=== PATIENT | male | born 1945 | race Caucasian/White ===

== ENCOUNTER → 2017-04-17 | Outpatient (CLI) | payer MEDICARE, OTHER ==
[~2017-04-17] MED LIST: HYDR12.53 PO; JUNAMET PO; LISI2.5T PO; METO25TA35 PO; REGADENOSON 0.4 MG/5 ML SYRINGE ONE; RIVA10TA PO
== END | disposition home or self-care (01) ==
LOC: CFH 08:18
PROVIDERS: ATTEND Nurse Practitioner Family
DX: Z02.9 Encounter for administrative examinations, unspecified (principal)
CPT/HCPCS: J2785

== ENCOUNTER 2017-06-28 00:23 | Inpatient (IN) | payer MEDICARE, OTHER ==
[~2017-06-28] VITALS: Ht 175.3 cm; Wt 88.3 kg
[~2017-06-28 00:23] MED LIST changes: -REGADENOSON 0.4 MG/5 ML SYRINGE ONE
[2017-06-28] MEDS ORDERED: SODIUM CHLORIDE 0.9% 1,000ML IVBOLUS ONE (01:00)
[2017-06-28 01:19] LABS: HEMOGLOBIN 15.3 g/dL (13.7-18.0)
[2017-06-28 01:28] LABS: BLOOD UREA NITROGEN 14 mg/dL (7-18)
[2017-06-28 01:32] LABS: IS PT STATUS REG ER OR PRE ER? YES
[2017-06-28] MEDS ORDERED: GLIP5TAB10 PO (03:00)
[2017-06-28] MEDS ORDERED: APIX5TAB PO (03:02)
[2017-06-28] MEDS ORDERED: HEPARIN 5,000 UNITS/ML, 1ML IV ONE (03:30)
[2017-06-28] MEDS ORDERED: SODIUM CHLORIDE 0.9% 1,000 ML IV ONE (03:33)
[2017-06-28] MEDS ORDERED: PROTAMINE SULFATE 10 MG/ML, 5ML ONE (03:38)
[2017-06-28] MEDS ORDERED: HEPARIN 1,000 UNITS/ML, 10ML ONE (03:39)
[2017-06-28] MEDS ORDERED: THROMBIN 20,000 UNIT VIAL TP ONE (03:39)
[2017-06-28] MEDS ORDERED: BUPIVACAINE/PF 0.5% ONE (03:39)
[2017-06-28] MEDS: SODIUM CHLORIDE 0.9% 1,000 ML IV SCH ×2 (03:46→13:46)
[2017-06-28 03:48] LABS: ANTI-Xa-UNFRACTIONATED HEP 0.01 IU/mL (0.30-0.70)
[2017-06-28] MEDS ORDERED: hydrALAzine 20 MG/ML, 1ML IVPush PRN (04:00)
[2017-06-28] MEDS ORDERED: BISACODYL 10 MG SUPP PR PRN (04:00)
[2017-06-28] MEDS ORDERED: POLYETHYLENE GLYCOL 17 GM PACKET PO PRN (04:00)
[2017-06-28] MEDS ORDERED: OXYcodone IR 5MG TABLET PO PRN (04:00)
[2017-06-28] MEDS ORDERED: ONDANSETRON 2MG/ML, 2ML IVPush PRN ×2 (04:00)
[2017-06-28] MEDS ORDERED: morphine SULFATE 10 MG/ML, 1ML IVPush PRN (04:00)
[2017-06-28] MEDS ORDERED: MORPHINE SULFATE 4 MG/ML, 1ML IVPush PRN (04:00)
[2017-06-28] MEDS ORDERED: ENALAPRILAT 1.25 MG/ML, 2ML IVPush PRN (04:00)
[2017-06-28] MEDS ORDERED: FENTANYL PF 100 MCG/2ML ONE (04:12)
[2017-06-28] MEDS ORDERED: ROCURONIUM 10 MG/ML ONE (04:20)
[2017-06-28] MEDS ORDERED: ONDANSETRON 2MG/ML, 2ML ONE (04:20)
[2017-06-28] MEDS ORDERED: CEFAZOLIN 1,000 MG ONE (04:20)
[2017-06-28] MEDS ORDERED: LIDOCAINE 2% 100MG/5ML SYRINGE ONE (04:20)
[2017-06-28] MEDS ORDERED: PHENYLEPHRINE 10 MG/ML ONE (04:20)
[2017-06-28] MEDS ORDERED: PROPOFOL 10 MG/ML, 20ML ONE (04:20)
[2017-06-28] MEDS ORDERED: METOPROLOL 1 MG/ML, 5ML ONE (04:20)
[2017-06-28] MEDS ORDERED: SUCCINYLCHOLINE 20 MG/ML, 10ML ONE (04:20)
[2017-06-28] MEDS ORDERED: PAPAVERINE 30 MG/ML, 2ML ONE (04:25)
[2017-06-28] MEDS ORDERED: BACITRACIN 50,000 UNIT ONE (04:25)
[2017-06-28] MEDS ORDERED: OMNIPAQUE 350 MG/ML, 100ML BOTTLE ONE (04:49)
[2017-06-28] MEDS ORDERED: PROMETHAZINE 25 MG/ML, 1ML IV PRN (05:00)
[2017-06-28] MEDS ORDERED: hydrALAzine 20 MG/ML, 1ML IV PRN (05:00)
[2017-06-28] MEDS ORDERED: HYDROmorphone 1 MG/ML, 1ML IV PRN ×2 (05:00→07:30)
[2017-06-28] MEDS ORDERED: ACETAMINOPHEN 325 MG TABLET PO PRN (05:00)
[2017-06-28] MEDS ORDERED: FENTANYL PF 100 MCG/2ML IV PRN (05:00)
[2017-06-28] MEDS ORDERED: OXYcodone 5 MG/5 ML ORAL.SOL UDC PO PRN (05:00)
[2017-06-28] MEDS ORDERED: LABETALOL 5MG/ML, 20ML IV PRN (05:00)
[2017-06-28 06:31] VITALS: BP 164/83
[2017-06-28 06:34] VITALS: BP 164/83
[2017-06-28 06:54] VITALS: BP 153/87
[2017-06-28] MEDS ORDERED: INSULIN ASPART 100 UNITS/ML, PEN SQ-INSULIN SCH (07:00)
[2017-06-28] MEDS ORDERED: HYDROcodone/APAP 5/325 TABLET PO PRN (07:30)
[2017-06-28] MEDS ORDERED: OXYcodone/APAP 5/325MG TABLET PO PRN (07:30)
[2017-06-28] MEDS ORDERED: ONDANSETRON 2MG/ML, 2ML IV PRN (07:30)
[2017-06-28] MEDS ORDERED: morphine SULFATE 10 MG/ML, 1ML IV PRN (07:30)
[2017-06-28] MEDS ORDERED: NS + 20MEQ KCL 1,000 ML IV SCH (07:30)
[2017-06-28] MEDS: SODIUM CHLORIDE FLUSH 10ML SYR IVF SCH ×2 (08:00→20:08)
[2017-06-28] MEDS: HEPARIN 25,000 UNITS/500ML PMX 500 ML IV PRN (08:07)
[2017-06-28] MEDS: METOPROLOL SUCCINATE 25 MG TAB.ER.24H PO SCH (08:35)
[2017-06-28] MEDS: SENNA/DOCUSATE TABLET PO SCH (08:36)
[2017-06-28] MEDS: CEFAZOLIN PMX 1GM/50ML 50 ML IVPB SCH ×2 (12:32→20:07)
[2017-06-28] MEDS: INSULIN ASPART 100 UNITS/ML, PEN SQ-INSULIN SCH ×3 (12:34→20:07)
[2017-06-28] MEDS: NS + 20MEQ KCL 1,000 ML IV SCH ×2 (12:35→22:19)
[2017-06-28 14:25] VITALS: BP 136/90
[2017-06-28] MEDS: ACETAMINOPHEN 325 MG TABLET PO PRN (14:59)
[2017-06-28] MEDS: HEPARIN 5,000 UNITS/ML, 1ML IV PRN ×2 (15:29→22:19)
[2017-06-28 19:34] VITALS: BP 118/76
[2017-06-29 03:04] VITALS: BP 136/82
[2017-06-29] MEDS: ACETAMINOPHEN 325 MG TABLET PO PRN (04:32)
[2017-06-29] MEDS: HEPARIN 25,000 UNITS/500ML PMX 500 ML IV PRN (04:45)
[2017-06-29 04:46] VITALS: BP 124/79
[2017-06-29 05:05] LABS: HEMOGLOBIN 14.8 g/dL (13.7-18.0)
[2017-06-29 05:16] LABS: ASPARTATE AMINO TRANSFERASE 11 U/L (15-37); BLOOD UREA NITROGEN 12 mg/dL (7-18)
[2017-06-29] MEDS: METOPROLOL SUCCINATE 25 MG TAB.ER.24H PO SCH (05:34)
[2017-06-29] MEDS: HEPARIN 5,000 UNITS/ML, 1ML IV PRN (05:36)
[2017-06-29 07:40] VITALS: BP 123/75
[2017-06-29] MEDS: NS + 20MEQ KCL 1,000 ML IV SCH (08:00)
[2017-06-29] MEDS: SENNA/DOCUSATE TABLET PO SCH (08:09)
[2017-06-29] MEDS: INSULIN ASPART 100 UNITS/ML, PEN SQ-INSULIN SCH ×2 (08:09→11:29)
[2017-06-29] MEDS: SODIUM CHLORIDE FLUSH 10ML SYR IVF SCH (08:36)
[2017-06-29 13:10] VITALS: BP 131/79
[2017-06-29] MEDS ORDERED: APIX5TAB PO (15:35)
== END 2017-06-29 16:28 | disposition home or self-care (01) | DRG 253 ==
LOC: ED 00:51 → EDIP 03:33 → 5SO 06:36
PROVIDERS: ADMIT Internal Medicine; ATTEND Internal Medicine
PROC: 03C70ZZ Extirpation of Matter from Right Brachial Artery, Open Approach (ICD-10-PCS; principal; 2017-06-28 04:00)
DX: I74.2 Embolism and thrombosis of arteries of the upper extremities (principal); E44.0 Moderate protein-calorie malnutrition; E11.65 Type 2 diabetes mellitus with hyperglycemia; D68.69 Other thrombophilia; I48.0 Paroxysmal atrial fibrillation; I10 Essential (primary) hypertension; Z91.14 Patient's other noncompliance with medication regimen; Z91.018 Allergy to other foods; Z87.891 Personal history of nicotine dependence; Z79.01 Long term (current) use of anticoagulants; Z79.84 Long term (current) use of oral hypoglycemic drugs
CPT/HCPCS: 36415; 80048; 80053; 80061; 82040; 82962; 83036; 83735; 84439; 84443; 84484; 85025; 85520; 85610; 85730; 88304; 93005; 93306; 99285; J0690; J1644; J1815; J2405; J2704; J2720; J3010; J3480; J3490; Q9967; C1757; J0330; J2370; J2440; J7030

== ENCOUNTER 2017-06-30 05:19 | Emergency (ER) | payer MEDICARE, OTHER ==
[~2017-06-30] VITALS: Ht 175.3 cm; Wt 84.4 kg
[~2017-06-30 05:19] MED LIST changes: +APIX5TAB PO; +GLIP5TAB10 PO
[2017-06-30 05:22] VITALS: BP 124/76
== END 2017-06-30 06:10 | disposition home or self-care (01) ==
LOC: ED 05:59
DX: Z48.01 Encounter for change or removal of surgical wound dressing (principal); E11.9 Type 2 diabetes mellitus without complications
CPT/HCPCS: 99281

== ENCOUNTER 2017-08-01 18:40 | Emergency (ER) | payer MEDICARE, OTHER ==
[~2017-08-01] VITALS: Ht 175.3 cm; Wt 87.0 kg
[2017-08-01 19:06] LABS: HEMATOCRIT 48.4 % (39.2-51.8); HEMOGLOBIN 15.9 g/dL (13.7-18.0); WHITE BLOOD COUNT 11.5 x10^3/uL (3.4-10)
[2017-08-01 19:19] LABS: BLOOD UREA NITROGEN 18 mg/dL (7-18)
[2017-08-01 19:48] VITALS: BP 137/87
== END 2017-08-01 20:24 | disposition home or self-care (01) ==
LOC: ED 19:50
DX: R20.2 Paresthesia of skin (principal); R51 Headache; E11.9 Type 2 diabetes mellitus without complications; I10 Essential (primary) hypertension
CPT/HCPCS: 36415; 70450; 80048; 82040; 85025; 93005; 99285

== ENCOUNTER 2017-11-04 09:30 | Inpatient (IN) | payer MEDICARE, OTHER ==
[~2017-11-04] VITALS: Ht 175.3 cm; Wt 89.8 kg
[2017-11-04 10:17] VITALS: BP 134/76
[2017-11-04] MEDS ORDERED: PLEASE ENTER HEIGHT AND WEIGHT MC SCH (10:30)
[2017-11-04 11:06] LABS: ANION GAP 9 mmol/L (5-15); CALCIUM 8.7 mg/dL (8.5-10.1); CHLORIDE 107 mmol/L (98-107); CHOLESTEROL, TOTAL 160 mg/dL (140-239); CREATININE 0.91 mg/dL (0.7-1.3); TRIGLYCERIDES 231 mg/dL (50-200); VLDL CHOLESTEROL 46 mg/dL (0-25)
[2017-11-04 11:10] LABS: FREE T4 (FREE THYROXINE) 1.29 ng/dL (0.76-1.46); HDL CHOL % 20 % (26-37); HDL CHOLESTEROL (DIRECT) 32 mg/dL (40-60); LDL CHOLESTEROL,CALCULATED 82 mg/dL (54-169); LDL/HDL RATIO 2.6 (0.5-3.0); TROPONIN I < 0.015 ng/mL (0.000-0.045)
[2017-11-04 11:16] LABS: THYROID STIMULATING HORMONE 0.405 mIU/L (0.358-3.740)
[2017-11-04] MEDS: SOTALOL 80MG TABLET PO SCH ×2 (11:31→19:50)
[2017-11-04 13:23] VITALS: BP 129/71
[2017-11-04 16:16] LABS: TROPONIN I < 0.015 ng/mL (0.000-0.045)
[2017-11-04] MEDS ORDERED: APIXABAN 5 MG TABLET ONE (19:28)
[2017-11-04] MEDS ORDERED: metFORMIN XR 500 MG TAB.ER.24H ONE (19:28)
[2017-11-04] MEDS: metFORMIN XR 500 MG TAB.ER.24H PO SCH (19:30)
[2017-11-04] MEDS: APIXABAN 5 MG TABLET PO SCH (19:30)
[2017-11-04 19:47] VITALS: BP 151/81
[2017-11-04 22:36] LABS: TROPONIN I < 0.015 ng/mL (0.000-0.045)
[2017-11-05 00:29] VITALS: BP 111/65
[2017-11-05 06:01] VITALS: BP 130/70
[2017-11-05] MEDS: SOTALOL 80MG TABLET PO SCH ×2 (06:02→17:19)
[2017-11-05 08:01] VITALS: BP 123/79
[2017-11-05] MEDS: metFORMIN XR 500 MG TAB.ER.24H PO SCH ×2 (08:09→20:17)
[2017-11-05] MEDS: TAMSULOSIN 0.4 MG CAP.ER.24H PO SCH (08:10)
[2017-11-05] MEDS: APIXABAN 5 MG TABLET PO SCH ×2 (08:10→20:16)
[2017-11-05] MEDS: SITAGLIPTIN 50MG TABLET PO SCH (08:10)
[2017-11-05 15:42] VITALS: BP 130/88
[2017-11-05 19:44] VITALS: BP 119/71
[2017-11-06 00:05] VITALS: BP 120/71
[2017-11-06 05:37] VITALS: BP 111/73
[2017-11-06] MEDS: SOTALOL 80MG TABLET PO SCH (05:38)
[2017-11-06] MEDS: APIXABAN 5 MG TABLET PO SCH (07:38)
[2017-11-06 07:53] VITALS: BP 132/76
[2017-11-06] MEDS ORDERED: PROPOFOL 10 MG/ML, 20ML ONE (10:30)
[2017-11-06] MEDS: metFORMIN XR 500 MG TAB.ER.24H PO SCH (11:31)
[2017-11-06] MEDS: SITAGLIPTIN 50MG TABLET PO SCH (11:32)
[2017-11-06] MEDS: TAMSULOSIN 0.4 MG CAP.ER.24H PO SCH (11:32)
[2017-11-06 14:08] VITALS: BP 122/73
[2017-11-06] MEDS ORDERED: SOTA80TA18 PO (14:46)
== END 2017-11-06 16:10 | disposition home or self-care (01) | DRG 309 ==
LOC: 5SO 09:47
PROVIDERS: ADMIT Internal Medicine Cardiovascular Disease; ATTEND Internal Medicine Cardiovascular Disease
PROC: 5A2204Z Restoration of Cardiac Rhythm, Single (ICD-10-PCS; principal; 2017-11-04)
DX: I48.0 Paroxysmal atrial fibrillation (principal); D68.69 Other thrombophilia; E11.9 Type 2 diabetes mellitus without complications; I07.1 Rheumatic tricuspid insufficiency; I10 Essential (primary) hypertension; N40.0 Benign prostatic hyperplasia without lower urinary tract symptoms; Z87.891 Personal history of nicotine dependence; Z91.018 Allergy to other foods
CPT/HCPCS: 36415; 71046; 80048; 80061; 84439; 84443; 84484; 85014; 85018; 92960; 93005; J2704

== ENCOUNTER 2017-11-11 05:14 | Emergency (ER) | payer MEDICARE, OTHER ==
[~2017-11-11] VITALS: Ht 185.4 cm; Wt 91.1 kg
[~2017-11-11 05:14] MED LIST changes: +SOTA80TA18 PO
[2017-11-11 05:53] LABS: BASOPHILS # (AUTO) 0.07 x10^3/uL (0-0.1); BASOPHILS % (AUTO) 1 % (0-1); EOSINOPHILS # (AUTO) 0.18 x10^3/uL (0-0.4); EOSINOPHILS % (AUTO) 2 % (1-7); LYMPHOCYTES # (AUTO) 1.92 x10^3/uL (1-3.4); LYMPHOCYTES % (AUTO) 19 % (22-44); MD NO; MEAN CORPUSCULAR HEMOGLOBIN 30.3 pg (27.5-34.5); MEAN CORPUSCULAR HGB CONC 34.5 g/dL (33.2-36.2); MEAN CORPUSCULAR VOLUME 87.8 fL (81-97); MEAN PLATELET VOLUME 8.3 fL (7.4-10.4); MONOCYTES # (AUTO) 1.34 x10^3/uL (0.2-0.8); MONOCYTES % (AUTO) 14 % (2-9); NEUTROPHILS # (AUTO) 6.44 x10^3/uL (1.8-6.8); NEUTROPHILS % (AUTO) 65 % (42-75); PLATELET COUNT 242 x10^3/uL (130-400); RED BLOOD COUNT 4.94 x10^6/uL (4.38-5.82); RED CELL DISTRIBUTION WIDTH 15.3 % (9.4-14.8)
[2017-11-11] MEDS ORDERED: SODIUM CHLORIDE FLUSH 10ML SYR IVF ONE (06:00)
[2017-11-11] MEDS ORDERED: SODIUM CHLORIDE 0.9% 1,000ML IVBOLUS ONE (06:00)
[2017-11-11 06:03] LABS: ALBUMIN 3.4 g/dL (3.4-5.0); ANION GAP 8 mmol/L (5-15); CALCIUM 8.6 mg/dL (8.5-10.1); CHLORIDE 108 mmol/L (98-107)
[2017-11-11] MEDS ORDERED: DILTIAZEM 120 MG CAP.ER.24H PO ONE (06:30)
[2017-11-11 06:48] VITALS: BP 136/74
== END 2017-11-11 06:59 | disposition home or self-care (01) ==
LOC: ED 05:58
DX: I48.0 Paroxysmal atrial fibrillation (principal); E11.9 Type 2 diabetes mellitus without complications; I10 Essential (primary) hypertension
CPT/HCPCS: 36415; 71045; 80048; 82040; 83735; 85025; 93005; 96360; 99285; J7030

== ENCOUNTER → 2017-11-27 | Outpatient (CLI) | payer MEDICARE, OTHER ==
[~2017-11-27] MED LIST changes: +DILT120C64 PO; +DILT120T4 PO; +METF500T9 PO; +SITA100T PO; +SOTA80TA PO; +TAMS-11 PO
== END | disposition home or self-care (01) ==
LOC: STAR 10:55
PROVIDERS: ATTEND Internal Medicine Cardiovascular Disease
DX: Z01.818 Encounter for other preprocedural examination (principal); I48.91 Unspecified atrial fibrillation
CPT/HCPCS: 36415; 80053; 85025; 85610; 85730

== ENCOUNTER → 2017-11-27 | Outpatient (CLI) | payer MEDICARE, OTHER ==
[~2017-11-27] MED LIST changes: -DILT120C64 PO; +OMNIPAQUE 350 MG/ML, 150 ML BOTTLE ONE
== END | disposition home or self-care (01) ==
LOC: CFH 09:34
PROVIDERS: ATTEND Internal Medicine Cardiovascular Disease
DX: I48.91 Unspecified atrial fibrillation (principal)
CPT/HCPCS: 71046; 75572; Q9967

== ENCOUNTER 2017-12-02 06:27 | Observation (INO) | payer MEDICARE, OTHER ==
[2017-11-27 11:37] VITALS: BP 161/72
[2017-11-27 11:53] LABS: BASOPHILS # (AUTO) 0.06 x10^3/uL (0-0.1); BASOPHILS % (AUTO) 1 % (0-1); EOSINOPHILS # (AUTO) 0.23 x10^3/uL (0-0.4); EOSINOPHILS % (AUTO) 2 % (1-7); LYMPHOCYTES # (AUTO) 1.67 x10^3/uL (1-3.4); LYMPHOCYTES % (AUTO) 16 % (22-44); MD NO; MEAN CORPUSCULAR HEMOGLOBIN 29.6 pg (27.5-34.5); MEAN CORPUSCULAR HGB CONC 33.4 g/dL (33.2-36.2); MEAN CORPUSCULAR VOLUME 88.7 fL (81-97); MEAN PLATELET VOLUME 7.9 fL (7.4-10.4); MONOCYTES # (AUTO) 1.02 x10^3/uL (0.2-0.8); MONOCYTES % (AUTO) 10 % (2-9); NEUTROPHILS # (AUTO) 7.76 x10^3/uL (1.8-6.8); NEUTROPHILS % (AUTO) 72 % (42-75); PLATELET COUNT 313 x10^3/uL (130-400); RED BLOOD COUNT 4.64 x10^6/uL (4.38-5.82); RED CELL DISTRIBUTION WIDTH 15.2 % (9.4-14.8)
[2017-11-27 11:54] LABS: INTERNATIONAL NORMALIZED RATIO 0.97 (0.93-1.1)
[2017-11-27 11:59] LABS: ALBUMIN 3.4 g/dL (3.4-5.0); ANION GAP 7 mmol/L (5-15); CHLORIDE 104 mmol/L (98-107)
[2017-11-27 12:02] LABS: ALANINE AMINOTRANSFERASE 39 U/L (12-78); ALKALINE PHOSPHATASE 67 U/L (45-117); BILIRUBIN,TOTAL 0.4 mg/dL (0.2-1.0); CREATININE 0.71 mg/dL (0.7-1.3); TOTAL PROTEIN 7.5 g/dL (6.4-8.2)
[~2017-12-02] VITALS: Ht 175.3 cm; Wt 88.0 kg
[~2017-12-02 06:27] MED LIST changes: -OMNIPAQUE 350 MG/ML, 150 ML BOTTLE ONE
[2017-12-02] MEDS ORDERED: SODIUM CHLORIDE 0.9% 1,000 ML IV SCH (06:37)
[2017-12-02] MEDS ORDERED: SODIUM CHLORIDE 0.9% 1,000 ML IV ONE (07:00)
[2017-12-02] MEDS ORDERED: MIDAZOLAM 1 MG/ML, 2ML ONE ×2 (07:15→08:40)
[2017-12-02] MEDS ORDERED: FENTANYL PF 250 MCG/5ML ONE ×2 (07:16→08:41)
[2017-12-02] MEDS ORDERED: LIDOCAINE 2%, 20ML ONE (08:12)
[2017-12-02] MEDS ORDERED: HEPARIN 1,000 UNITS/ML, 10ML ONE ×2 (08:12→09:25)
[2017-12-02] MEDS ORDERED: ISOPROTERENOL 0.2MG/ML, 5ML ONE (08:12)
[2017-12-02] MEDS ORDERED: DEXAMETHASONE 4 MG/ML, 1ML ONE (08:43)
[2017-12-02] MEDS ORDERED: ONDANSETRON 2MG/ML, 2ML ONE (08:43)
[2017-12-02] MEDS ORDERED: PROTAMINE SULFATE 10 MG/ML, 5ML ONE (09:25)
[2017-12-02] MEDS ORDERED: ACETAMINOPHEN 325 MG TABLET PO PRN ×2 (13:00→14:00)
[2017-12-02] MEDS ORDERED: ZOLPIDEM 5MG TABLET PO PRN (13:00)
[2017-12-02] MEDS ORDERED: APIXABAN 5 MG TABLET ONE (13:08)
[2017-12-02] MEDS ORDERED: APIXABAN 5 MG TABLET PO SCH ×2 (13:30→21:00)
[2017-12-02] MEDS ORDERED: hydrALAzine 20 MG/ML, 1ML IV PRN (14:00)
[2017-12-02] MEDS ORDERED: LABETALOL 5MG/ML, 20ML IV PRN (14:00)
[2017-12-02] MEDS ORDERED: HYDROmorphone 1 MG/ML, 1ML IV PRN (14:00)
[2017-12-02] MEDS ORDERED: FENTANYL PF 100 MCG/2ML IV PRN (14:00)
[2017-12-02] MEDS ORDERED: MEPERIDINE/PF 25MG/0.5ML IVPush PRN (14:00)
[2017-12-02] MEDS ORDERED: PROMETHAZINE 12.5 MG SUPP PR PRN (14:00)
[2017-12-02] MEDS ORDERED: OXYcodone 5 MG/5 ML ORAL.SOL UDC PO PRN (14:00)
[2017-12-02] MEDS ORDERED: MIDAZOLAM 1 MG/ML, 2ML IV PRN (14:00)
[2017-12-02] MEDS ORDERED: ONDANSETRON 2MG/ML, 2ML IVPush PRN (14:00)
[2017-12-02] MEDS ORDERED: ALBUTEROL SULFATE 2.5 MG/3 ML NPPB PRN (14:00)
[2017-12-02 14:57] VITALS: BP 149/83
[2017-12-02] MEDS ORDERED: DILT120C64 PO (16:19)
[2017-12-02] MEDS ORDERED: metFORMIN XR 500 MG TAB.ER.24H PO SCH (17:00)
[2017-12-02] MEDS ORDERED: DILTIAZEM 120 MG CAP.ER.24H PO SCH (17:00)
[2017-12-02] MEDS ORDERED: TAMSULOSIN 0.4 MG CAP.ER.24H PO SCH (17:00)
[2017-12-02] MEDS: SOTALOL 120MG TABLET PO SCH ×2 (17:32→18:00)
[2017-12-02] MEDS: metFORMIN 500 MG TABLET PO SCH ×2 (17:33→18:00)
[2017-12-02 17:49] VITALS: BP 159/85
[2017-12-02 19:28] VITALS: BP 131/71
[2017-12-02] MEDS ORDERED: SOTALOL 120MG TABLET PO SCH (21:00)
[2017-12-03 02:59] VITALS: BP 114/58
[2017-12-03] MEDS: APIXABAN 5 MG TABLET PO SCH ×2 (04:18→04:20)
[2017-12-03] MEDS: SITAGLIPTIN 50MG TABLET PO SCH ×2 (04:19→04:21)
[2017-12-03] MEDS: metFORMIN 500 MG TABLET PO SCH (04:20)
[2017-12-03] MEDS: SOTALOL 120MG TABLET PO SCH (05:52)
[2017-12-03] MEDS ORDERED: TAMSULOSIN 0.4 MG CAP.ER.24H PO SCH (09:00)
[2017-12-03] MEDS ORDERED: DILTIAZEM 120 MG TABLET PO SCH (09:00)
[2017-12-03] MEDS ORDERED: SITAGLIPTIN 50MG TABLET PO SCH (09:00)
[2017-12-03 09:45] VITALS: BP 118/64
[2017-12-03] MEDS ORDERED: SOTA80TA PO (12:12)
== END 2017-12-03 13:33 | disposition home or self-care (01) ==
LOC: CACL 06:27 → ORIP 12:59 → 5SO 14:50 → DCLOUNGE 12-03 13:05
PROVIDERS: ADMIT Internal Medicine Cardiovascular Disease; ATTEND Internal Medicine Cardiovascular Disease
DX: I48.91 Unspecified atrial fibrillation (principal); I48.92 Unspecified atrial flutter
CPT/HCPCS: 85347; 93005; 93308; 93312; 93321; 93325; 93613; 93656; 93662; C1730; C1731; C1732; C1759; C1766; C1893; C1894; G0378; J1100; J1644; J2250; J2405; J2720; J3010; J3490; 36415; 80053; 85025; 85610; 85730

== ENCOUNTER → 2017-12-15 | Outpatient (CLI) | payer MEDICARE, OTHER ==
[~2017-12-15] MED LIST changes: +DILT120C64 PO
== END ==
LOC: SDC 08:00 → CACL 10:20 → EDSTATUS 12:30
PROVIDERS: ATTEND Internal Medicine Cardiovascular Disease
DX: I48.91 Unspecified atrial fibrillation (principal); Z53.9 Procedure and treatment not carried out, unspecified reason
CPT/HCPCS: 93005

== ENCOUNTER 2019-04-30 03:33 | Inpatient (IN) | payer MEDICARE, OTHER ==
[~2019-04-30] VITALS: Ht 177.8 cm; Wt 76.6 kg
[~2019-04-30 03:33] MED LIST changes: +HYDR12.517 PO; -HYDR12.53 PO; -RIVA10TA PO; +RIVA10TA2 PO
--- NOTE | 2019-04-30 04:16 | NUR ---
PLEASANT TALKATIVE GENTLEMAN HERE STATING THAT HE AWOKE THIS AM WITH A COUGH AND HIS FORM COVERER (SABI) TOLD HIM THAT IF HE DEVELOPED A COUGH HE SHOULD BE SEEN SOTALOL CAN CAUSE THIS, THEN HE REMEMBERED THAT HE DID NOT TAKE IT YESTERDAY SO HE TOOK IT THIS MORNING. PT ALSO STATES THAT HE TAKES HIS GLIPIZIDE NEEDED ALTHOUGJ IT IS NOT ORDERED THIS WAY BE HIS PMD. STATES THAT THESE TWO M EDICATIONS ARE THE ONLY ONE'S THAT HE TAKES WITH REGULARITY, MED REC REVEALS MULTIPLE OTHER MEDICATIONS. CURRENTLY IS NSR MONITOR, SPO2 90% RA, PLACED ON 2L NC. PT IS SEEN BY DR MCCLAIN AT [facility]. IV STARTED FOR CT AT THIS TIME.
[2019-04-30 04:38] LABS: MEAN CORPUSCULAR HEMOGLOBIN 30.1 pg (27.5-34.5); MEAN CORPUSCULAR HGB CONC 32.8 g/dL (33.2-36.2); MEAN CORPUSCULAR VOLUME 91.7 fL (81-97); MEAN PLATELET VOLUME 8.8 fL (7.4-10.4); PLATELET COUNT 180 x10^3/uL (130-400); RED BLOOD COUNT 4.91 x10^6/uL (4.38-5.82); RED CELL DISTRIBUTION WIDTH 15.5 % (9.4-14.8)
[2019-04-30 04:49] LABS: ALANINE AMINOTRANSFERASE 26 U/L (12-78); ALBUMIN 3.5 g/dL (3.4-5.0); ANION GAP 6 mmol/L (5-15); CALCIUM 8.8 mg/dL (8.5-10.1); CHLORIDE 111 mmol/L (98-107)
[2019-04-30 04:53] LABS: ALKALINE PHOSPHATASE 50 U/L (45-117); BILIRUBIN,TOTAL 0.5 mg/dL (0.2-1.0); TOTAL PROTEIN 7.1 g/dL (6.4-8.2); TROPONIN I < 0.015 ng/mL (0.000-0.045)
--- NOTE | 2019-04-30 05:06 | NUR ---
LATE NOTE ENTRY FOR 0450: Received report from Manuel RN. All questions answered. Assumng care of pt. KAILYN. Pt resting on gurney connected to NIBP cuff, continous pulse ox, and auxiliary operator.
--- NOTE | 2019-04-30 05:14 | NUR ---
Pt ambulates with steady gait and balance with NADN, no obvious defecits observed. No needs requested at this time. Pt returned to room and is being transfered to PA on [facility]. Both rails up x 2 for safety measures. NADN.
[2019-04-30 05:19] LABS: BASOPHILS # (AUTO) 0.06 x10^3/uL (0-0.1); BASOPHILS % (AUTO) 1 % (0-1); EOSINOPHILS # (AUTO) 0.09 x10^3/uL (0-0.4); EOSINOPHILS % (AUTO) 1 % (1-7); LYMPHOCYTES # (AUTO) 1.01 x10^3/uL (1-3.4); LYMPHOCYTES % (AUTO) 8 % (22-44); MD SCAN; MONOCYTES # (AUTO) 0.75 x10^3/uL (0.2-0.8); MONOCYTES % (AUTO) 6 % (2-9); NEUTROPHILS # (AUTO) 11.15 x10^3/uL (1.8-6.8); NEUTROPHILS % (AUTO) 85 % (42-75)
[2019-04-30] MEDS ORDERED: OMNIPAQUE 350 MG/ML, 100ML BOTTLE ONE (05:35)
[2019-04-30] MEDS ORDERED: CEFTRIAXONE PMX 1GM/50ML 50 ML IVPB ONE (06:00)
[2019-04-30] MEDS ORDERED: AZITHROMYCIN 500 MG in SODIUM CHLORIDE 0.9% 250 ML IVPB ONE (06:00)
[2019-04-30] MEDS ORDERED: TAMSULOSIN 0.4 MG CAP.ER.24H PO ONE (06:00)
[2019-04-30] MEDS ORDERED: TAMSULOSIN 0.4 MG CAP.ER.24H ONE (06:19)
[2019-04-30] MEDS ORDERED: CEFTRIAXONE PMX 1GM/50ML 50 ML ONE (06:19)
[2019-04-30] MEDS ORDERED: SODIUM CHLORIDE FLUSH 10ML SYR IVF PRN (06:30)
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
--- NOTE | 2019-04-30 07:15 | NUR ---
REPORT CALLED TO THE FLOOR
[2019-04-30 07:40] VITALS: BP 144/72
[2019-04-30 07:45] VITALS: BP 146/80
[2019-04-30] MEDS ORDERED: ONDANSETRON 2MG/ML, 2ML IVPush PRN (09:00)
[2019-04-30] MEDS ORDERED: ONDANSETRON ODT 4 MG PO PRN (09:00)
[2019-04-30] MEDS ORDERED: LABETALOL 5MG/ML, 20ML IVPush PRN (09:00)
[2019-04-30] MEDS ORDERED: POLYETHYLENE GLYCOL 17 GM PACKET PO PRN (09:00)
[2019-04-30 09:17] LABS: INTERNATIONAL NORMALIZED RATIO 0.95 (0.93-1.1)
[2019-04-30] MEDS: AMPICILLIN/SULBACTAM 3 GM in SODIUM CHLORIDE 0.9% 100 ML IV SCH ×3 (11:34→20:52)
[2019-04-30] MEDS: SENNA/DOCUSATE TABLET PO SCH (11:35)
[2019-04-30] MEDS: D5%-0.45% NACL 1,000 ML IV SCH ×2 (11:35→21:53)
[2019-04-30] MEDS: DOXYCYCLINE 100MG TABLET PO SCH ×2 (11:35→21:53)
[2019-04-30 11:48] LABS: MICROSCOPIC AUTO
[2019-04-30 11:50] LABS: CULTURE INDICATED? NO
[2019-04-30 12:37] VITALS: BP 132/65
[2019-04-30] MEDS ORDERED: ENOXAPARIN 40 MG/0.4 ML SQ SCH (15:00)
[2019-04-30] MEDS ORDERED: TEMPLATE NON-FORMULARY MED. (Diltiazem Hcl (Cartia Xt) 120 MG) PO SCH (16:00)
[2019-04-30] MEDS ORDERED: TAMSULOSIN 0.4 MG CAP.ER.24H PO SCH (16:00)
[2019-04-30 17:07] LABS: HEMOGLOBIN A1C 6.3 % (4.2-6.3)
[2019-04-30 20:28] VITALS: BP 117/58
[2019-04-30] MEDS: INSULIN LISPRO 100 UNITS/ML, PEN SQ-INSULIN SCH (21:54)
[2019-04-30] MEDS: SOTALOL 80MG TABLET PO SCH (21:54)
[2019-05-01] MEDS: AMPICILLIN/SULBACTAM 3 GM in SODIUM CHLORIDE 0.9% 100 ML IV SCH ×2 (02:24→08:28)
[2019-05-01 02:33] VITALS: BP 97/52
[2019-05-01] MEDS ORDERED: LINAGLIPTIN 5 MG TAB PO SCH (04:00)
[2019-05-01 06:07] LABS: ALANINE AMINOTRANSFERASE 16 U/L (12-78); ALBUMIN 2.6 g/dL (3.4-5.0); ANION GAP 5 mmol/L (5-15); BASOPHILS # (AUTO) 0.02 x10^3/uL (0-0.1); BASOPHILS % (AUTO) 0 % (0-1); CALCIUM 8.1 mg/dL (8.5-10.1); CHLORIDE 111 mmol/L (98-107); CREATININE 0.79 mg/dL (0.7-1.3); EOSINOPHILS # (AUTO) 0.05 x10^3/uL (0-0.4); EOSINOPHILS % (AUTO) 1 % (1-7); LYMPHOCYTES # (AUTO) 1.24 x10^3/uL (1-3.4); LYMPHOCYTES % (AUTO) 12 % (22-44); MD NO; MEAN CORPUSCULAR HEMOGLOBIN 30.2 pg (27.5-34.5); MEAN CORPUSCULAR HGB CONC 32.8 g/dL (33.2-36.2); MEAN CORPUSCULAR VOLUME 92.3 fL (81-97); MEAN PLATELET VOLUME 8.8 fL (7.4-10.4); MONOCYTES # (AUTO) 1.21 x10^3/uL (0.2-0.8); MONOCYTES % (AUTO) 12 % (2-9); NEUTROPHILS # (AUTO) 7.58 x10^3/uL (1.8-6.8); NEUTROPHILS % (AUTO) 75 % (42-75); PLATELET COUNT 145 x10^3/uL (130-400); RED BLOOD COUNT 4.43 x10^6/uL (4.38-5.82); RED CELL DISTRIBUTION WIDTH 16.3 % (9.4-14.8)
[2019-05-01 06:17] LABS: ALKALINE PHOSPHATASE 45 U/L (45-117); BILIRUBIN,TOTAL 0.7 mg/dL (0.2-1.0); THYROID STIMULATING HORMONE 0.401 mIU/L (0.358-3.740); TOTAL PROTEIN 5.7 g/dL (6.4-8.2)
[2019-05-01] MEDS ORDERED: PANTOPRAZOLE 40 MG IV IVPush SCH (07:30)
[2019-05-01 07:51] VITALS: BP 127/65
[2019-05-01] MEDS: DOXYCYCLINE 100MG TABLET PO SCH (08:39)
[2019-05-01] MEDS: SOTALOL 80MG TABLET PO SCH (08:39)
[2019-05-01] MEDS: SENNA/DOCUSATE TABLET PO SCH (08:40)
[2019-05-01] MEDS: INSULIN LISPRO 100 UNITS/ML, PEN SQ-INSULIN SCH (08:42)
== END 2019-05-01 12:05 | disposition left against medical advice (07) | DRG 194 ==
LOC: ED 03:43 → EDIP 06:09 → 4WST 07:31
PROVIDERS: ADMIT Internal Medicine; ATTEND Internal Medicine
DX: J18.9 Pneumonia, unspecified organism (principal); D68.69 Other thrombophilia; E11.9 Type 2 diabetes mellitus without complications; E78.5 Hyperlipidemia, unspecified; I10 Essential (primary) hypertension; I48.0 Paroxysmal atrial fibrillation; Z87.891 Personal history of nicotine dependence; Z91.018 Allergy to other foods; Z53.21 Procedure and treatment not carried out due to patient leaving prior to being seen by health care provider
CPT/HCPCS: 36415; 71275; 80053; 81001; 82962; 83036; 83605; 83735; 84100; 84145; 84443; 84484; 85025; 85610; 87040; 93005; 96374; 99285; G0378; J0295; J0696; J1650; Q9967; C9113; J1815

== ENCOUNTER 2019-10-29 09:19 | Emergency (ER) | payer MEDICARE, OTHER ==
[~2019-10-29] VITALS: Ht 175.3 cm; Wt 78.6 kg
[~2019-10-29 09:19] MED LIST changes: +METF500T12 PO; -METF500T9 PO
--- NOTE | 2019-10-29 09:51 | NUR ---
This 74 yom pt c/o congestion and sore throat x 3 days, stated is concerned may develop PNA again. Pt denies cough, denies feeling short of breath. Pt reports at times does feel pain in throat when swallowing. Reviewed discharge instructions and prescriptions w/ pt, verbalized understanding to information provided including follow up care and return precautions, denied questions/concerns. Pt thanked RN for care. Pt ambulated from ED.
[2019-10-29 09:52] VITALS: BP 142/90
== END 2019-10-29 09:55 | disposition home or self-care (01) ==
LOC: ED 09:37
DX: J00 Acute nasopharyngitis [common cold] (principal); E11.9 Type 2 diabetes mellitus without complications; I10 Essential (primary) hypertension; I48.92 Unspecified atrial flutter; I48.0 Paroxysmal atrial fibrillation
CPT/HCPCS: 99282

== ENCOUNTER 2020-01-16 05:32 | Emergency (ER) | payer MEDICARE, OTHER ==
[2020-01-16 05:37] VITALS: BP 165/62
[2020-01-16] MEDS ORDERED: LIDOCAINE-MPF 1%, 5ML ONE (05:50)
--- NOTE | 2020-01-16 05:51 | NUR ---
Patient ambulated steadily back into room. Obvious enlarged area on left side of neck. Task RN provided midlevel provider with lidocaine and emergency department assembly technician placed irrigation and debridement kit at bedside. Provider now at bedside.
== END 2020-01-16 06:16 | disposition home or self-care (01) ==
LOC: ED 06:13
DX: L02.11 Cutaneous abscess of neck (principal); L72.3 Sebaceous cyst; I10 Essential (primary) hypertension; E11.9 Type 2 diabetes mellitus without complications; I48.0 Paroxysmal atrial fibrillation
CPT/HCPCS: 10060; 99283

== ENCOUNTER 2020-12-25 16:06 | Emergency (ER) | payer MEDICARE, OTHER ==
[~2020-12-25] VITALS: Ht 175.3 cm; Wt 75.2 kg
[~2020-12-25 16:06] MED LIST changes: +METF-754 PO; -METF500T12 PO
[2020-12-25 16:10] VITALS: BP 161/67
[2020-12-25] MEDS ORDERED: DIPH,PERTUSS(ACELL),TET VAC/PF 0.5 ML IM-VACC ONE ×2 (16:30→16:37)
--- NOTE | 2020-12-25 16:54 | NUR ---
Patient given discharge instructions and they have confirmed that they understand the instructions. Patient ambulatory with steady gait.
== END 2020-12-25 16:56 | disposition home or self-care (01) ==
LOC: ED 16:40
DX: S61.211A Laceration without foreign body of left index finger without damage to nail, initial encounter (principal); R00.1 Bradycardia, unspecified; I48.91 Unspecified atrial fibrillation; E11.9 Type 2 diabetes mellitus without complications; I10 Essential (primary) hypertension; W22.8XXA Striking against or struck by other objects, initial encounter; Y93.89 Activity, other specified; Y92.009 Unspecified place in unspecified non-institutional (private) residence as the place of occurrence of the external cause; Y99.8 Other external cause status
CPT/HCPCS: 12001; 90471; 90715; 99283

== ENCOUNTER 2021-03-01 06:45 | Emergency (ER) | payer MEDICARE, OTHER ==
[~2021-03-01] VITALS: Ht 175.3 cm; Wt 77.3 kg
--- NOTE | 2021-03-01 07:00 | NUR ---
ERMD AT BEDSIDE FOR EVALUATION.
--- NOTE | 2021-03-01 07:02 | NUR ---
PATIENT WALKED BACK FROM TRIAGE WITH CHIEF C/O ENLARGED SCROTUM"" X3 DAYS. PER PATIENT UNABLE TO WALK, TOOK STEROIDS AT HOME AND SWELLING WENT DOWN, HOWEVER, STARTED GETTING WORSE AGAIN. NADN, CALL LIGHT WITHIN REACH.
--- NOTE | 2021-03-01 07:27 | NUR ---
PATIENT EDUCATED ON NEED FOR URINE SAMPLE, DIRECTOR EXECUTIVE COMMUNICATIONS AT BEDSIDE.
[2021-03-01 07:51] LABS: BASOPHILS % (AUTO) 1 % (0-1); EOSINOPHILS % (AUTO) 1 % (1-7); LYMPHOCYTES % (AUTO) 10 % (22-44); MEAN CORPUSCULAR HGB CONC 33.6 g/dL (33.2-36.2); MEAN PLATELET VOLUME 8.5 fL (7.4-10.4); MONOCYTES % (AUTO) 11 % (2-9); NEUTROPHILS % (AUTO) 78 % (42-75); PLATELET COUNT 164 x10^3/uL (130-400); RED BLOOD COUNT 4.29 x10^6/uL (4.38-5.82)
[2021-03-01 07:58] LABS: ALBUMIN 3.1 g/dL (3.4-5.0); ANION GAP 7 mmol/L (5-15); CALCIUM 8.4 mg/dL (8.5-10.1); CHLORIDE 109 mmol/L (98-107)
--- NOTE | 2021-03-01 08:02 | NUR ---
URINE SAMPLE COLLECTED AND SENT TO LAB. US AT BEDSIDE.
[2021-03-01 08:12] VITALS: BP 111/60
[2021-03-01 08:21] LABS: MICROSCOPIC AUTO
[2021-03-01 08:33] LABS: MD SCAN
[2021-03-01] MEDS ORDERED: CIPROFLOXACIN 500 MG TABLET PO ONE (09:00)
[2021-03-01] MEDS ORDERED: CIPROFLOXACIN 500 MG TABLET ONE (09:04)
--- NOTE | 2021-03-01 09:13 | NUR ---
Patient given discharge instructions and prescription and they have confirmed that they understand the instructions. Patient stable and ambulatory with steady gait from ED to private vehicle.
== END 2021-03-01 09:14 | disposition home or self-care (01) ==
LOC: ED 07:00
DX: N45.1 Epididymitis (principal); I10 Essential (primary) hypertension; E11.9 Type 2 diabetes mellitus without complications; I48.0 Paroxysmal atrial fibrillation
CPT/HCPCS: 36415; 76870; 80048; 81001; 82040; 85025; 87077; 87086; 87186; 99284